=== PATIENT | female | born 1945 | race Caucasian/White ===

== ENCOUNTER → 2016-12-24 11:47 | Outpatient (CLI) | payer MEDICARE, BC | END | disposition home or self-care (01) | LOC: D.CT 11:47 | DX: R60.0 Localized edema (principal) ==

== ENCOUNTER → 2019-01-07 12:08 | Outpatient (CLI) | payer MEDICARE, BC ==
--- NOTE | 2019-01-10 09:56 | EC ---
PATIENT:ALBERT MATHEW DATE OF SERVICE: 01/07/19 SEX: F MEDICAL RECORD: [id number] DATE OF : 43 LOCATION:D[facility] AGE OF PATIENT: 73 ADMISSION DATE: 01/07/19 REFERRING PHYSICIAN: INTERPRETING PHYSICIAN: APRIL MCCOY MD ECHOCARDIOGRAM REPORT ECHO CHARGES 4 ECHO COMPLETE Date: 01/07/19 CLINICAL DIAGNOSIS: H/O HTN/CAD ECHOCARDIOGRAPHIC MEASUREMENTS (adult normal given) AC root (d.<3.7cm) 3.4 cm LV Septum d (<1.2 cm> 1.5 cm Valve Excursion 1.7 cm LV Septum (systole) 2.0 cm Left Atria (s.<4.0cm> 4.1 cm LVPW d(<1.2cm) 1.5 cm RV (d.<2.3cm) 2.7 cm LVPW (sytole) 2.1 cm LV diastole(<5.6CM) 5.9 cm MV E-F(>70mm/sec) cm LV systole 3.7 cm LVOT Diameter 1.8 cm MV exc.(>10mm) cm Est.ejection fraction (50-75%) % DOPPLER: LVIT cm/sec A 74.0 cm/sec E 139 cm/sec LA cm/sec RVSP 44.0 mmHg LVOT 190 cm/sec AOP1/2T m/s Asc. Ao 205 cm/sec RVOT 78.0 cm/sec RA cm/sec PA 149 cm/sec AV Gradient Peak 17.0 mmHg AV Mean 8.6 mmHg AV Area 2.2 cm MV Gradient Peak 9.1 mmHg MV Mean 2.3 mmHg MV Area cm COMMENTS: OP - HC Change Analyst: 1 LAURA DIXONOE Skull Grinder: 3 Dr. Saenz TAPE# PACS Pericardial Effusion N DATE OF SERVICE: 01/07/2019 Adequate 2D, color flow imaging, spectral Doppler, and M-Mode LVH is present. LV internal dimension is normal. Wall motion is normal. EF is greater than or equal to 55%. Aortic valve is sclerosed without evidence of stenosis by Doppler interrogation. Left atrium is minimally dilated at 4.1 cm. Mitral valve shows no prolapse. [id number] MR. Right-sided chambers are grossly normal. Mild TR. ECHOCARDIOGRAM REPORT [id number] ALBERT MATHEW TRANSINT:[id number] Voice Confirmation ID: [id number] DOCUMENT ID: [id number] APRIL MCCOY MD at 0956 CC: [id number] DICTATION DATE: 01/09/19951 TECHNICIAN SUPPORT [employer]IATION: 01/09/19 1129 DEP CLI 01/07/19 [place] [id number] [place] [id number]
== END | disposition home or self-care (01) ==
LOC: D.HCCECHO 12:08
PROVIDERS: ATTEND Internal Medicine Interventional Cardiology
DX: I07.1 Rheumatic tricuspid insufficiency (principal)